=== PATIENT | male | born 1950 | race Caucasian/White ===

== ENCOUNTER 2024-02-09 06:21 | Day surgery (SDC) | payer OTHER, SELFPAY ==
[2024-02-04 08:49] VITALS: BMI 28.8
[2024-02-04 10:34] LABS: Urine Albumin Negative (Neg - Trace); Urine Bilirubin Negative (Negative); Urine Character Clear (Clear); Urine Color Yellow; Urine Glucose Negative (Negative); Urine Ketone Negative (Negative); Urine Leukocyte Negative (Negative); Urine Nitrite Negative (Negative); Urine Occult Blood Negative (Negative); Urine Specific Gravity 1.015 (<1.030); Urine Urobilinogen Negative (Neg - 1+)
[2024-02-04 10:36] LABS: Hematocrit 40.2 % (39.0-52.0); Hemoglobin 13.1 g/dL (13.0-18.0); Mean Corp Hgb Conc. 32.6 g/dL (33.0-37.0); Mean Corpuscular Hgb 28.4 pg (27.0-31.0); Mean Platelet Volume 11.7 fL (7.4-10.4); Platelet Count 211 10^3/uL (130-400); Red Blood Cell Count 4.62 10^6/uL (4.70-6.10); Red Cell Dist. Width 14.8 % (11.5-14.5)
[2024-02-04 10:44] LABS: INR 1.03; PT 13.5 Sec (11.4-14.6)
[2024-02-04 10:45] LABS: APTT 31.8 Sec (23.4-35.0)
[2024-02-04 11:18] LABS: Blood Urea Nitrogen 16 mg/dl (9-20); Calcium 9.5 mg/dl (8.4-10.2); Carbon Dioxide 24 mmol/L (22-30); Chloride 107 mmol/L (98-107); Estimated Creatinine Clearance 47 ml/min; Glucose 43 mg/dl (70-99); Potassium 4.5 mmol/L (3.5-5.1); Sodium 144 mmol/L (135-145); eGFR 49.47
--- NOTE | 2024-02-04 14:28 | PTCARENOTE ---
Abnormal EKG on 02/04/24. Dr. Whelan aware. No intervention required.
--- NOTE | 2024-02-04 15:17 | PTCARENOTE ---
Abnormal glucose of 43 on 02/03. Yomaira at Dr. Araujo office aware.
--- NOTE | 2024-02-05 13:58 | PTCARENOTE ---
Patients 02/03 glucose 43- Dr. Morris notified- no interventions required
[2024-02-09] VITALS (29 sets, daily range): BP systolic 156–208; BP diastolic 78–132; BMI 28.8
[2024-02-09] MEDS: NORMOSOL-R/PLASMALYTE-A 1000 IV (09:18)
[2024-02-09 09:19] LABS: Glucose - Point of Care 106 mg/dl (70-99)
[2024-02-09 11:17] LABS: Glucose - Point of Care 91 mg/dl (70-99)
[2024-02-09 12:01] LABS: Urine Albumin Negative (Neg - Trace); Urine Bilirubin Negative (Negative); Urine Character Clear (Clear); Urine Color Straw; Urine Glucose Negative (Negative); Urine Ketone Negative (Negative); Urine Leukocyte Negative (Negative); Urine Nitrite Negative (Negative); Urine Occult Blood Negative (Negative); Urine Urobilinogen Negative (Neg - 1+)
--- NOTE | 2024-02-09 13:04 | SUR.PHASEI ---
1300: Phase I note, Pt. arrived to the PACU agitated and combative towards staff with a RASS of +4, pulled out IV and unable to get vital signs at this time. Anesthesiologist and CLIENT RELATIONSHIP EXECUTIVE at bedside. Reestablished IV acess and was anaesthesia was able
to give medications per their TAR. Pt. was able to settle down ~5 minutes after administration. Pt. voided and flasher at bedside aware of situation.
[2024-02-09 13:18] LABS: Glucose - Point of Care 129 mg/dl (70-99)
[2024-02-09] MEDS: FLOMAX 0.4 MG PO (13:26)
[2024-02-09] MEDS: Pyridium 200 MG PO (13:26)
[2024-02-09] MEDS: TRANDATE 5 MG IV ×4 (13:43→14:27)
[2024-02-09] MEDS: APRESOLINE 5 MG IV ×2 (15:14→15:31)
[2024-02-09] MEDS: ROXICODONE 5 MG PO (16:22)
== END 2024-02-09 17:24 | disposition home or self-care (01) ==
LOC: SDS 06:21
PROVIDERS: ATTENDING PHYSICIAN Specialist; FAMILY PHYSICIAN Internal Medicine
DX: N21.0 Calculus in bladder (principal)
CPT/HCPCS: 52318; 80048; 81003; 82365; 82962; 85027; 85610; 85730; 87086; 93005; C1776